=== PATIENT | female | born 1955 | race Caucasian/White ===

== ENCOUNTER 2025-03-20 09:23 | Emergency (ER) | payer MEDICARE, OTHER ==
[2025-03-20 13:46] VITALS: BP 174/79; PULSE 89
== END 2025-03-20 11:20 | disposition home or self-care (01) ==
LOC: JD.ED 09:23
DX: S06.0XAA Concussion with loss of consciousness status unknown, initial encounter (principal); S05.01XA Injury of conjunctiva and corneal abrasion without foreign body, right eye, initial encounter; Z88.5 Allergy status to narcotic agent; Z79.899 Other long term (current) drug therapy; X58.XXXA Exposure to other specified factors, initial encounter
CPT/HCPCS: 70450; 70450-26; 99283; 99284